=== PATIENT | male | born 1970 | race Caucasian/White ===

== ENCOUNTER 2017-03-05 07:21 | Day surgery (SDC) | payer OTHER ==
[2017-03-05] MEDS ORDERED: FLUMAZENIL 0.5 MG/5 ML MDV IVP ONE (07:30)
[2017-03-05] MEDS ORDERED: NALOXONE HCL 0.4 MG/ML INJ ONE (07:30)
[2017-03-05] MEDS ORDERED: fentaNYL 100 MCG/2 ML INJ ONE (07:31)
[2017-03-05] MEDS ORDERED: MIDAZOLAM 2 MG/2 ML VIAL ONE (07:31)
[2017-03-05 08:09] LABS: INR 1.04 (0.83-1.16); PROTIME(PATIENT) 13.5 SEC (12.0-15.0)
[2017-03-05 08:10] LABS: APTT 30.7 SEC (23.0-38.0)
[2017-03-05 09:52] VITALS: TEMP 97.9
[2017-03-05] MEDS ORDERED: ACETAMINOPHEN 325 MG TAB PO PRN (10:04)
[2017-03-05] MEDS ORDERED: ONDANSETRON 4 MG/2 ML VIAL IVP PRN (10:06)
[2017-03-05 10:17] VITALS: RESP 14; O2SAT 95
[2017-03-05 10:34] VITALS: BP 97/68; PULSE 67
[2017-03-10 09:42] LABS: FINAL DIAGNOSIS See Comments; MICROSCOPIC DESCRIPTION See Comments
== END 2017-03-05 10:39 | disposition home or self-care (01) ==
LOC: FIMAGING 07:21 → EEVIPCON 07:21 → FIMAGING 10:39
PROVIDERS: ATTEND Radiology Diagnostic Radiology
PROC: 0WBC3ZX Excision of Mediastinum, Percutaneous Approach, Diagnostic (ICD-10-PCS; principal; 2017-03-05 09:25)
DX: R93.8 Abnormal findings on diagnostic imaging of other specified body structures (principal); M51.26 Other intervertebral disc displacement, lumbar region
CPT/HCPCS: 88184-90; 88185-91; J2250; J2310; J3010

== ENCOUNTER 2017-03-12 06:14 | Day surgery (SDC) | payer OTHER ==
[2017-03-12] MEDS ORDERED: ceFAZolin 2 GM/DEXTROSE 100 ML IV ONE (06:20)
[2017-03-12] MEDS ORDERED: CEFAZOLIN 2 GM/DEXTROSE/100 ML BAG IV ONE (06:23)
[2017-03-12] MEDS ORDERED: LIDOCAINE 1% 2 ML INJ ONE (06:26)
[2017-03-12] MEDS ORDERED: LR 1,000 ML IV ONE (06:40)
[2017-03-12] MEDS ORDERED: LIDOCAINE 1% 2 ML INJ ID PRN (06:40)
--- NOTE | 2017-03-12 06:46 | PDHPUP ---
History & Physical Update H&P update statement: This history and physical update is based on an assessment of the patient which was completed after admission or registration (within 24 hours), but prior to the surgery/procedure. H&P update: H&P reviewed & patient examined, no change in patient's condition since H&P completed
[2017-03-12] MEDS ORDERED: BUPIVACAINE/EPI 0.25% 30 ML SDV ONE (06:56)
[2017-03-12] MEDS ORDERED: MIDAZOLAM 2 MG/2 ML VIAL IVP ONE (07:05)
--- NOTE | 2017-03-12 07:08 | PDANEPAE ---
ANE History of Present Illness port for chemo, large b cell lymphoma ANE Past Medical History - Cardiovascular History Hx Hypertension: No Hx Arrhythmias: No Hx Chest Pain: No Hx Coronary Artery / Peripheral Vascular Disease: No Hx CHF / Valvular Disease: No Hx Palpitations: No - Pulmonary History Hx COPD: No Hx Asthma/Reactive Airway Disease: No Hx Recent Upper Respiratory Infection: No Hx Oxygen in Use at Home: No Hx Sleep Apnea: No Sleep Apnea Screening Result - Last Documented: Negative - Neurologic History Hx Cerebrovascular Accident: No Hx Seizures: No Hx Dementia: No - Endocrine History Hx Diabetes: No - Renal History Hx Renal Disorders: No - Liver History Hx Hepatic Disorders: No - Neurological & Psychiatric Hx Hx Neurological and Psychiatric Disorders: No - Cancer History Hx Cancer: No - Congenital Disorder History Hx Congenital Disorders: No - GI History Hx Gastrointestinal Disorders: No - Other Health History Other Health History: RECENT CT SCAN SHOWED ANTERIOR MEDIASTINA MASS. devated sptum repair - Chronic Pain History Chronic Pain: Yes (neck/BACK pain) - Surgical History Prior Surgeries: RT Knee SCOPE 09/2016. SKULL FACE REPAIR ETHMOID SINUS FOR spinal fluid leak. RHINOPLASTY ANE Review of Systems - Exercise capacity Exercise capacity: >=4 METS METS (RN): 6 METS - Systems Constitutional: Reports: malaise EENMT: Reports: no symptoms Cardiac: Reports: no symptoms Respiratory: Reports: no symptoms Muscolosketal: Reports: no symptoms Neurological: Reports: no symptoms ANE Patient History - Allergies Allergies/Adverse Reactions: gluten Allergy (Verified 03/04/17 16:55) Milk Containing Products [dairy] Allergy (Verified 03/12/17 06:43) - Home Medications Home Medications: Fish Oil DAILY 03/11/17 [Last Taken 03/10/17] Herbal Drugs DAILY 03/11/17 [Last Taken 03/11/17 06:00] - NPO status NPO Status: no food or drink >8 hours NPO Since - Liquids (Date): 03/12/17 NPO Since - Liquids (Time): 04:00 NPO Since - Solids (Date): 03/11/17 NPO Since - Solids (Time): 20:30 - Smoking Hx Smoking Status: Never smoked - Alcohol Use Alcohol Use: Rarely - Family Anes Hx Family Hx Anesthesia Complications: no ANE Labs/Vital Signs - Vital Signs Blood Pressure: 105/69 Heart Rate: 70 Respiratory Rate: 16 O2 Sat (%): 95 Height: 170.18 cm Weight: 68.039 kg ANE Physical Exam - Airway Mallampati Score: Class 1 Mouth exam: normal dental/mouth exam - Pulmonary Pulmonary: no respiratory distress - Cardiovascular Cardiovascular: regular rate and rhythym - ASA Status ASA Status: II ANE Anesthesia Plan Anesthesia Plan: MAC
[2017-03-12] MEDS ORDERED: fentaNYL 100 MCG/2 ML INJ ONE (07:15)
[2017-03-12] MEDS ORDERED: PROPOFOL/EMULSION 500 MG/50 ML BOTTLE IV ONE (07:15)
[2017-03-12] MEDS ORDERED: LIDOCAINE 2% 5 ML SDV ONE (07:15)
[2017-03-12] MEDS ORDERED: KETOROLAC 30 MG/1 ML SDV ONE (07:51)
[2017-03-12] MEDS ORDERED: ONDANSETRON 4 MG/2 ML VIAL ONE (07:51)
[2017-03-12] MEDS ORDERED: fentaNYL 100 MCG/2 ML INJ IVP PRN ×2 (07:53)
[2017-03-12] MEDS ORDERED: HYDROmorphONE/DILAUDID 1 MG/ML SYR IVP PRN (07:53)
[2017-03-12] MEDS ORDERED: OXYCODONE/APAP 5/325 TAB PO PRN (07:53)
[2017-03-12] MEDS ORDERED: ALBUTEROL 3 ML DEYVIAL IH PRN (07:53)
[2017-03-12] MEDS ORDERED: ONDANSETRON 4 MG/2 ML VIAL IVP PRN (07:53)
[2017-03-12] MEDS ORDERED: HYDROCODONE/APAP 5/325 TAB PO PRN (07:53)
[2017-03-12] MEDS ORDERED: PROMETHAZINE HCL 25 MG/ML INJ IVP PRN (07:53)
[2017-03-12] MEDS ORDERED: ACETAMINOPHEN 500 MG TAB PO PRN (07:53)
[2017-03-12] MEDS ORDERED: NALOXONE HCL 0.4 MG/ML INJ IVP PRN (07:53)
--- NOTE | 2017-03-12 08:10 | POSTOPPROG ---
Post Op Note Date of Operation: 03/12/17 Surgeon: Chaim Randle Anesthesiologist: Kevin Anesthesia: IV Sedation Pre-op Diagnosis: Lymphoma Post-op Diagnosis: same Procedure: L ultrasound guided IJ Infusaport placement Findings: adequate placement Inf/Abcess present in the surg proc area at time of surgery?: No EBL: Minimal
[2017-03-12 09:12] VITALS: TEMP 97.7; O2SAT 97
[2017-03-12] MEDS ORDERED: ACETAMINOPHEN 500 MG TAB ONE (09:36)
[2017-03-12 09:52] VITALS: BP 99/64
[2017-03-12 11:20] VITALS: PULSE 87; RESP 16
== END 2017-03-12 10:00 | disposition home or self-care (01) ==
LOC: FSGY 06:14
PROVIDERS: ATTEND Surgery
PROC: 02HV33Z Insertion of Infusion Device into Superior Vena Cava, Percutaneous Approach (ICD-10-PCS; principal; 2017-03-12 07:15)
DX: C85.90 Non-Hodgkin lymphoma, unspecified, unspecified site (principal)
CPT/HCPCS: C1788; J0690; J1642; J1885; J2250; J2405; J2704; J3010

== ENCOUNTER → 2017-07-01 | Outpatient (CLI) | payer OTHER | LOC: FIMAGING 12:33 | PROVIDERS: ATTEND Nurse Practitioner ==

== ENCOUNTER → 2018-11-15 | Outpatient (CLI) | payer OTHER | LOC: FIMAGING 10:32 | PROVIDERS: ATTEND Internal Medicine Hematology & Oncology | DX: J98.4 Other disorders of lung (principal) ==